=== PATIENT | male | born 1960 | race Caucasian/White ===

== ENCOUNTER 2016-05-25 03:44 | Emergency (ER) | payer MEDICAID ==
[~2016-05-25] VITALS: Ht 172.7 cm; Wt 72.0 kg
[~2016-05-25 03:44] MED LIST: DIVA500T35 PO; LEVE250T55 PO; QUET100T PO; TRAZ150 PO
[2016-05-25] MEDS ORDERED: LORazepam 2 MG TABLET PO ONE (04:00)
[2016-05-25 04:29] LABS: BASOPHILS # (AUTO) 0.01 K/uL (0.00-0.20); BASOPHILS % (AUTO) 0.1 % (0.0-2.0); EOSINOPHILS % (AUTO) 2.59 % (1.0-6.0); HEMOGLOBIN 16.2 g/dL (13.5-17.5); LYMPHOCYTES % (AUTO) 26.6 % (22.0-44.0); MEAN CORPUSCULAR HEMOGLOBIN 25.1 pg (26.0-34.0); MEAN CORPUSCULAR HGB CONC 32.3 G/dL (31.0-37.0); MEAN CORPUSCULAR VOLUME 77 fL (80-100); MONOCYTES # (AUTO) 0.1 K/uL (0.1-1.0); MONOCYTES % (AUTO) 1.3 % (2.0-9.0); NEUTROPHILS # (AUTO) 5.3 K/uL (1.8-7.7); NEUTROPHILS % (AUTO) 69.3 % (40.0-70.0); PLATELET COUNT (AUTO) 266 K/uL (150-450); RED BLOOD CELL COUNT(AUTO) 6.45 MIL/uL (4.50-5.90); WHITE BLOOD COUNT (AUTO) 7.7 K/uL (4.5-11.0)
[2016-05-25 04:39] LABS: ANION GAP 8 mmol/L (8-16); CALCIUM, TOTAL 9.2 mg/dL (8.8-10.5); CARBON DIOXIDE 29 mmol/L (22-29); CHLORIDE 99 mmol/L (98-107); CREATININE 0.85 mg/dL (0.60-1.30); GLOMERULAR FILTR. RATE CALC > 60 mL/min (>60); POTASSIUM 3.7 mmol/L (3.5-5.1); SODIUM SERUM 136 mmol/L (136-145); UREA NITROGEN, BLOOD 9 mg/dL (7-18)
[2016-05-25 04:45] LABS: ALANINE AMINOTRANSFERASE 15 U/L (12-78); ALBUMIN 3.9 g/dL (3.4-5.0); ASPARTATE AMINOTRANSFERASE 10 U/L (15-37); BILIRUBIN,TOTAL 0.1 mg/dL (0.1-1.0); TOTAL PROTEIN, SERUM 8.1 g/dL (6.4-8.2)
[2016-05-25 04:56] LABS: VALPROIC ACID 19 mcg/mL (50-100)
[2016-05-25] MEDS ORDERED: DIVALPROEX SODIUM 250 MG DR TABLET PO ONE (05:00)
[2016-05-25 05:10] VITALS: BP 129/73
== END 2016-05-25 05:12 | disposition home or self-care (01) ==
LOC: EMS 03:47
DX: R56.9 Unspecified convulsions (principal)
CPT/HCPCS: 36415; 80053; 80164; 85025; 99284; G0480

== ENCOUNTER 2016-05-29 22:42 | Emergency (ER) | payer MEDICAID ==
[~2016-05-29] VITALS: Ht 160 cm; Wt 62.0 kg
[2016-05-29 23:16] LABS: BASOPHILS % (AUTO) 0.6 % (0.0-2.0); EOSINOPHILS % (AUTO) 3.1 % (1.0-6.0); HEMATOCRIT 47.6 % (41-53); HEMOGLOBIN 15.3 g/dL (13.5-17.5); LYMPHOCYTES # (AUTO) 2.1 K/uL (1.0-4.8); LYMPHOCYTES % (AUTO) 24.4 % (22.0-44.0); MEAN CORPUSCULAR HGB CONC 32.2 G/dL (31.0-37.0); MEAN CORPUSCULAR VOLUME 78 fL (80-100); MONOCYTES # (AUTO) 0.5 K/uL (0.1-1.0); MONOCYTES % (AUTO) 6.2 % (2.0-9.0); NEUTROPHILS # (AUTO) 5.5 K/uL (1.8-7.7); NEUTROPHILS % (AUTO) 65.7 % (40.0-70.0); PLATELET COUNT (AUTO) 340 K/uL (150-450); RED BLOOD CELL COUNT(AUTO) 6.14 MIL/uL (4.50-5.90); RED CELL DISTRIBUTION WIDTH 15.4 % (11.5-14.5); WHITE BLOOD COUNT (AUTO) 8.4 K/uL (4.5-11.0)
[2016-05-29 23:35] LABS: ANION GAP 13 mmol/L (8-16); CALCIUM, TOTAL 9.2 mg/dL (8.8-10.5); CARBON DIOXIDE 23 mmol/L (22-29); CHLORIDE 104 mmol/L (98-107); CREATININE 0.83 mg/dL (0.60-1.30); GLOMERULAR FILTR. RATE CALC > 60 mL/min (>60); POTASSIUM 3.6 mmol/L (3.5-5.1); SODIUM SERUM 140 mmol/L (136-145); UREA NITROGEN, BLOOD 12 mg/dL (7-18)
[2016-05-29 23:40] LABS: ALANINE AMINOTRANSFERASE 12 U/L (12-78); ALBUMIN 3.9 g/dL (3.4-5.0); ASPARTATE AMINOTRANSFERASE 12 U/L (15-37); BILIRUBIN,TOTAL 0.3 mg/dL (0.1-1.0); TOTAL PROTEIN, SERUM 7.6 g/dL (6.4-8.2)
[2016-05-29 23:53] LABS: VALPROIC ACID 24 mcg/mL (50-100)
[2016-05-30] MEDS ORDERED: DIVALPROEX SODIUM 500 MG ER TABLET PO ONE (00:15)
[2016-05-30] MEDS ORDERED: PHENYTOIN SODIUM 100 MG ER CAPSULE PO ONE (00:15)
[2016-05-30] MEDS ORDERED: LevETIRAcetam 500 MG TABLET PO ONE (00:15)
[2016-05-30 00:21] LABS: RBC MORPHOLOGY COMMENT ABNORMAL RBC MORPH
[2016-05-30 01:30] VITALS: BP 126/83
== END 2016-05-30 01:59 | disposition home or self-care (01) ==
LOC: EMS 22:44
DX: G40.909 Epilepsy, unspecified, not intractable, without status epilepticus (principal); F17.220 Nicotine dependence, chewing tobacco, uncomplicated
CPT/HCPCS: 99284; 99406

== ENCOUNTER 2016-06-06 10:14 | Emergency (ER) | payer MEDICAID ==
[~2016-06-06] VITALS: Ht 165.1 cm; Wt 72.0 kg
[2016-06-06] MEDS ORDERED: LITH300C3 PO (10:38)
[2016-06-06] MEDS ORDERED: LORazepam 2 MG/ML VIAL IM ONE (11:00)
[2016-06-06 12:45] LABS: LITHIUM 1.11 mmol/L (0.60-1.20)
[2016-06-06] MEDS ORDERED: VALPROIC ACID 250 MG CAPSULE PO ONE (12:45)
[2016-06-06 13:10] VITALS: BP 118/81
== END 2016-06-06 13:37 | disposition home or self-care (01) ==
LOC: EMS 10:18
DX: R56.9 Unspecified convulsions (principal); F17.220 Nicotine dependence, chewing tobacco, uncomplicated
CPT/HCPCS: 36415; 80164; 80178; 96372; 99284; J2060

== ENCOUNTER 2016-06-11 18:28 | Emergency (ER) | payer MEDICAID ==
[~2016-06-11 18:28] MED LIST changes: +LITH300C3 PO
== END 2016-06-11 20:17 | disposition left against medical advice (07) ==
LOC: EMS 18:31
DX: R45.851 Suicidal ideations (principal); Z53.21 Procedure and treatment not carried out due to patient leaving prior to being seen by health care provider

== ENCOUNTER 2016-06-14 01:03 | Emergency (ER) | payer MEDICAID ==
[~2016-06-14] VITALS: Ht 165.1 cm; Wt 68.2 kg
[2016-06-14 03:30] VITALS: BP 121/68
== END 2016-06-14 03:53 | disposition home or self-care (01) ==
LOC: EMS 01:05
DX: G40.909 Epilepsy, unspecified, not intractable, without status epilepticus (principal)
CPT/HCPCS: 99283

== ENCOUNTER 2016-06-23 10:56 | Emergency (ER) | payer MEDICAID ==
[~2016-06-23] VITALS: Ht 167.6 cm; Wt 68.2 kg
[~2016-06-23 10:56] MED LIST changes: -LEVE250T55 PO
[2016-06-23 11:40] LABS: BASOPHILS # (AUTO) 0.04 K/uL (0.00-0.20); BASOPHILS % (AUTO) 0.7 % (0.0-2.0); EOSINOPHILS # (AUTO) 0.16 K/uL (0.00-0.70); EOSINOPHILS % (AUTO) 3.17 % (1.0-6.0); HEMATOCRIT 39.7 % (41-53); HEMOGLOBIN 13.3 g/dL (13.5-17.5); LYMPHOCYTES # (AUTO) 1.3 K/uL (1.0-4.8); LYMPHOCYTES % (AUTO) 24.6 % (22.0-44.0); MEAN CORPUSCULAR HEMOGLOBIN 25.6 pg (26.0-34.0); MEAN CORPUSCULAR HGB CONC 33.4 G/dL (31.0-37.0); MEAN CORPUSCULAR VOLUME 77 fL (80-100); MONOCYTES # (AUTO) 0.4 K/uL (0.1-1.0); MONOCYTES % (AUTO) 7.9 % (2.0-9.0); NEUTROPHILS # (AUTO) 3.3 K/uL (1.8-7.7); NEUTROPHILS % (AUTO) 63.5 % (40.0-70.0); PLATELET COUNT (AUTO) 303 K/uL (150-450); RED BLOOD CELL COUNT(AUTO) 5.19 MIL/uL (4.50-5.90); RED CELL DISTRIBUTION WIDTH 16.6 % (11.5-14.5); WHITE BLOOD COUNT (AUTO) 5.2 K/uL (4.5-11.0)
[2016-06-23 11:57] LABS: ANION GAP 11 mmol/L (8-16); CARBON DIOXIDE 27 mmol/L (22-29); CHLORIDE 103 mmol/L (98-107); CREATININE 0.82 mg/dL (0.60-1.30); GLOMERULAR FILTR. RATE CALC > 60 mL/min (>60); POTASSIUM 3.8 mmol/L (3.5-5.1); SODIUM SERUM 141 mmol/L (136-145); UREA NITROGEN, BLOOD 11 mg/dL (7-18)
[2016-06-23 12:03] LABS: ALANINE AMINOTRANSFERASE 14 U/L (12-78); ALBUMIN 3.4 g/dL (3.4-5.0); ASPARTATE AMINOTRANSFERASE 10 U/L (15-37); BILIRUBIN,TOTAL 0.2 mg/dL (0.1-1.0); TOTAL PROTEIN, SERUM 6.9 g/dL (6.4-8.2)
[2016-06-23 12:04] LABS: VALPROIC ACID < 3 mcg/mL (50-100)
[2016-06-23 12:11] LABS: LITHIUM < 0.20 mmol/L (0.60-1.20)
[2016-06-23 12:17] LABS: RBC MORPHOLOGY COMMENT ABNORMAL RBC MORPH
[2016-06-23] MEDS ORDERED: LORazepam 2 MG TABLET PO ONE (12:30)
[2016-06-23] MEDS ORDERED: HALOPERIDOL 5 MG TABLET PO ONE (12:30)
[2016-06-23 14:26] VITALS: BP 129/79
== END 2016-06-23 14:38 | disposition home or self-care (01) ==
LOC: EMS 11:00 → EEVIPCON 11:00 → EMS 14:38
DX: F20.9 Schizophrenia, unspecified (principal); F31.9 Bipolar disorder, unspecified; F17.220 Nicotine dependence, chewing tobacco, uncomplicated
CPT/HCPCS: 36415; 80053; 80164; 80178; 85025; 99284; G0480

== ENCOUNTER 2016-06-28 00:38 | Emergency (ER) | payer MEDICAID ==
[~2016-06-28] VITALS: Ht 162.6 cm; Wt 79.5 kg
[2016-06-28 00:57] LABS: GLUCOSE,POINT OF CARE 90 MG/DL (70-110)
[2016-06-28 01:50] LABS: BASOPHILS # (AUTO) 0.03 K/uL (0.00-0.20); BASOPHILS % (AUTO) 0.4 % (0.0-2.0); EOSINOPHILS # (AUTO) 0.17 K/uL (0.00-0.70); HEMATOCRIT 45.3 % (41-53); LYMPHOCYTES # (AUTO) 1.5 K/uL (1.0-4.8); LYMPHOCYTES % (AUTO) 22.1 % (22.0-44.0); MEAN CORPUSCULAR HEMOGLOBIN 25.4 pg (26.0-34.0); MEAN CORPUSCULAR HGB CONC 33.1 G/dL (31.0-37.0); MEAN CORPUSCULAR VOLUME 77 fL (80-100); MONOCYTES # (AUTO) 0.3 K/uL (0.1-1.0); MONOCYTES % (AUTO) 4.9 % (2.0-9.0); NEUTROPHILS # (AUTO) 4.7 K/uL (1.8-7.7); NEUTROPHILS % (AUTO) 70.1 % (40.0-70.0); PLATELET COUNT (AUTO) 299 K/uL (150-450); RED BLOOD CELL COUNT(AUTO) 5.91 MIL/uL (4.50-5.90); RED CELL DISTRIBUTION WIDTH 16.9 % (11.5-14.5); WHITE BLOOD COUNT (AUTO) 6.7 K/uL (4.5-11.0)
[2016-06-28 01:54] LABS: ANION GAP 10 mmol/L (8-16); CALCIUM, TOTAL 8.5 mg/dL (8.8-10.5); CARBON DIOXIDE 27 mmol/L (22-29); CHLORIDE 101 mmol/L (98-107); CREATININE 0.95 mg/dL (0.60-1.30); GLOMERULAR FILTR. RATE CALC > 60 mL/min (>60); POTASSIUM 3.9 mmol/L (3.5-5.1); SODIUM SERUM 138 mmol/L (136-145); UREA NITROGEN, BLOOD 17 mg/dL (7-18)
[2016-06-28 02:01] LABS: ALANINE AMINOTRANSFERASE 15 U/L (12-78); ASPARTATE AMINOTRANSFERASE 11 U/L (15-37); BILIRUBIN,TOTAL 0.3 mg/dL (0.1-1.0)
[2016-06-28 02:04] LABS: LITHIUM < 0.20 mmol/L (0.60-1.20)
[2016-06-28 02:13] LABS: VALPROIC ACID < 3 mcg/mL (50-100)
[2016-06-28 02:33] VITALS: BP 122/70
== END 2016-06-28 03:16 | disposition home or self-care (01) ==
LOC: EMS 00:40
DX: G40.909 Epilepsy, unspecified, not intractable, without status epilepticus (principal)
CPT/HCPCS: 36415; 80053; 80164; 80178; 82962; 85025; 99284; G0480

== ENCOUNTER 2016-07-02 23:07 | Emergency (ER) | payer MEDICAID ==
[~2016-07-02] VITALS: Ht 162.6 cm; Wt 65.0 kg
[2016-07-03 00:10] VITALS: BP 122/83
== END 2016-07-03 01:52 | disposition left against medical advice (07) ==
LOC: EMS 23:10
DX: R56.9 Unspecified convulsions (principal); F17.228 Nicotine dependence, chewing tobacco, with other nicotine-induced disorders; Z53.21 Procedure and treatment not carried out due to patient leaving prior to being seen by health care provider

== ENCOUNTER 2016-07-14 17:35 | Emergency (ER) | payer MEDICAID ==
[~2016-07-14] VITALS: Ht 167.6 cm; Wt 68.2 kg
[2016-07-14] MEDS ORDERED: LORazepam 2 MG TABLET PO ONE (18:30)
[2016-07-14] MEDS ORDERED: DIVALPROEX SODIUM 500 MG ER TABLET PO ONE (18:30)
[2016-07-14 18:33] LABS: BASOPHILS % (AUTO) 0.8 % (0.0-2.0); EOSINOPHILS % (AUTO) 0.8 % (1.0-6.0); HEMATOCRIT 42.8 % (41-53); HEMOGLOBIN 13.7 g/dL (13.5-17.5); LYMPHOCYTES % (AUTO) 11.3 % (22.0-44.0); MEAN CORPUSCULAR HGB CONC 31.9 G/dL (31.0-37.0); MEAN CORPUSCULAR VOLUME 78 fL (80-100); MONOCYTES # (AUTO) 0.7 K/uL (0.1-1.0); MONOCYTES % (AUTO) 7.4 % (2.0-9.0); NEUTROPHILS # (AUTO) 7.3 K/uL (1.8-7.7); NEUTROPHILS % (AUTO) 79.7 % (40.0-70.0); PLATELET COUNT (AUTO) 293 K/uL (150-450); RED BLOOD CELL COUNT(AUTO) 5.45 MIL/uL (4.50-5.90); RED CELL DISTRIBUTION WIDTH 16.3 % (11.5-14.5); WHITE BLOOD COUNT (AUTO) 9.1 K/uL (4.5-11.0)
[2016-07-14 18:40] LABS: ANION GAP 11 mmol/L (8-16); CALCIUM, TOTAL 8.4 mg/dL (8.8-10.5); CARBON DIOXIDE 24 mmol/L (22-29); CHLORIDE 104 mmol/L (98-107); CREATININE 1.07 mg/dL (0.60-1.30); GLOMERULAR FILTR. RATE CALC > 60 mL/min (>60); POTASSIUM 3.8 mmol/L (3.5-5.1); SODIUM SERUM 139 mmol/L (136-145); UREA NITROGEN, BLOOD 9 mg/dL (7-18)
[2016-07-14 18:46] LABS: ALANINE AMINOTRANSFERASE 18 U/L (12-78); ALBUMIN 3.7 g/dL (3.4-5.0); ASPARTATE AMINOTRANSFERASE 18 U/L (15-37); BILIRUBIN,TOTAL 0.3 mg/dL (0.1-1.0); VALPROIC ACID < 3 mcg/mL (50-100)
[2016-07-14 19:42] VITALS: BP 118/80
[2016-07-15] MEDS ORDERED: SERT50TA12 PO (17:28)
[2016-07-15] MEDS ORDERED: OMEP20 PO (17:28)
[2016-07-15] MEDS ORDERED: LEVE500T53 PO (17:28)
== END 2016-07-14 20:30 | disposition home or self-care (01) ==
LOC: EMS 17:37
DX: F41.9 Anxiety disorder, unspecified (principal); F25.9 Schizoaffective disorder, unspecified; F31.9 Bipolar disorder, unspecified; G40.909 Epilepsy, unspecified, not intractable, without status epilepticus; R45.851 Suicidal ideations; F17.200 Nicotine dependence, unspecified, uncomplicated; Z91.14 Patient's other noncompliance with medication regimen
CPT/HCPCS: 36415; 80053; 80164; 80178; 85025; 99284; 99406; G0480

== ENCOUNTER 2016-07-15 17:12 | Emergency (ER) | payer MEDICAID ==
[~2016-07-15] VITALS: Ht 167.6 cm; Wt 65.0 kg
[2016-07-15] MEDS ORDERED: OMEP20 PO (17:28)
[2016-07-15] MEDS ORDERED: SERT50TA12 PO (17:28)
[2016-07-15] MEDS ORDERED: LEVE500T53 PO (17:28)
[2016-07-15] MEDS ORDERED: DIVALPROEX SODIUM 250 MG DR TABLET PO ONE (18:30)
[2016-07-15 19:20] VITALS: BP 118/78
== END 2016-07-15 19:24 | disposition home or self-care (01) ==
LOC: EMS 17:16
DX: G40.909 Epilepsy, unspecified, not intractable, without status epilepticus (principal); F20.9 Schizophrenia, unspecified; F31.9 Bipolar disorder, unspecified; F17.220 Nicotine dependence, chewing tobacco, uncomplicated
CPT/HCPCS: 99285